=== PATIENT | male | born 1975 | race Caucasian/White ===

== ENCOUNTER 2018-03-24 14:42 | Emergency (ER) | payer SELFPAY ==
[2018-03-24] MEDS ORDERED: 0.9 % SODIUM CHLORIDE 1,000 ML IV ONE (15:10)
[2018-03-24 15:25] LABS: BASOPHILS % 0.5 (0.0-1.5); EOSINOPHILS % 1.5 % (0.0-6.8); MONOCYTES % 6.8 % (0.0-11.0); NEUTROPHILS # 5.3 # k/uL (1.4-7.7)
[2018-03-24 15:45] LABS: eGFR (Non-African) > 60
[2018-03-24] MEDS ORDERED: POTASSIUM CHLORIDE 20 MEQ TABLET.ER PO ONE (16:22)
--- NOTE | 2018-03-24 16:31 | ED Physician Documentation ---
General Adult - HISTORIAN Historian: patient - HPI Stated Complaint: stitch removal, catheter removal, generalized pain, foot swelling Chief Complaint: General Adult Onset: days ago Timing: still present Severity: moderate Further Comments: yes (Pt is a 42 yo male who has had stitches placed in this R elbow and R middle finger that have been in place since March 01. He says that he suffers from gout and incisions were to remove gouty deposits. Pt was unable to f/u to have the sutures removed as instructed. In addition, he had had urinary retention and had a schroeder cath and leg bag placed that was supposed to be removed 2 weeks ago. Pt c/o generalized malaise, but does not have fever. Pt does not have a regular primary provider.) - ROS CONST: other (malais) EYES/ENT: none CVS/RESP: none GI/: other (schroeder cath in place for several weeks) MS/SKIN/LYMPH: other (sutures in place, overdue for removal on R elbow and R middle finger.) - PAST HX Past History: hypertension, other (Depression, Gout) Allergies/Adverse Reactions: Allergies Allergy/AdvReac Type Severity Reaction Status Date / Time gabapentin Allergy Verified 03/24/18 15:31 labetalol Allergy Verified 03/24/18 15:31 ziprasidone [From Geodon] Allergy Verified 03/24/18 15:31 nitro Allergy Uncoded 03/24/18 15:31 Home Medications: Ambulatory Orders Medication Instructions Recorded Cephalexin [Keflex] 500 mg PO Q8H #21 capsule 03/24/18 Clonidine HCl [Catapres] 0.3 mg PO TID 03/24/18 Metoprolol Succinate 100 mg PO DAILY 03/24/18 Spironolactone 25 mg PO DAILY 03/24/18 Trazodone HCl [Desyrel] 100 mg PO DAILY 03/24/18 amLODIPine BESYLATE [Norvasc] 10 mg PO 0900 03/24/18 - SOCIAL HX Smoking History: non-smoker Drug Use: marijuana - FAMILY HX Family History: No - VITAL SIGNS Vital Signs: Vital Signs Temp Pulse Resp BP Pulse Ox 99 H 18 180/122 99 03/24/18 14:45 03/24/18 14:45 03/24/18 14:45 03/24/18 14:45 - REVIEWED ASSESSMENTS Nursing Assessment Reviewed: Yes Vitals Reviewed: Yes Progress - Progress Progress: Sutures removed from R middle finger and R elbow. Schroeder cath removed. Pt was able to void after schroeder removal. Rx Keflex 500 mg. Take one every 8 hours for 7 days for skin and for possible urinary infection. Pt given handout to establish with local primary provider. ED Results Lab/Radiology - Lab Results Lab Results: Lab Results 03/24/18 03/24/18 Unknown Unknown WBC 7.30 K/ul K/ul (4.00-12.00) RBC 5.06 M/ul M/ul (3.90-5.20) Hgb 15.2 g/dL g/dL (12.0-18.0) Hct 45.0 % % (37.0-53.0) MCV 89.0 fl fl (80.0-100.0) MCH 30.0 pg pg (28.0-34.0) MCHC 33.7 g/dL g/dL (30.0-36.0) RDW 13.6 % % (11.3-14.3) Plt Count 161 K/mm3 K/mm3 (130-400) Neut % (Auto) 73.2 % % (39.0-79.0) Lymph % (Auto) 18.0 % % (16.0-50.0) Waldo % (Auto) 6.8 % % (0.0-11.0) Eos % (Auto) 1.5 % % (0.0-6.8) Baso % (Auto) 0.5 (0.0-1.5) Neut # (Auto) 5.3 # k/uL # k/uL (1.4-7.7) Lymph # (Auto) 1.3 # k/uL # k/uL (0.6-4.0) Waldo # (Auto) 0.5 # k/uL # k/uL (0.0-0.9) Eos # (Auto) 0.1 # k/uL # k/uL (0.0-0.6) Baso # (Auto) 0.0 # k/uL # k/uL (0.0-0.5) Sodium 145 mmol/L mmol/L (136-145) Potassium 3.2 mmol/L L mmol/L (3.5-5.1) Chloride 103 mmol/L mmol/L (98-107) Carbon Dioxide 27 mmol/L mmol/L (22-30) BUN 12 mg/dL mg/dL (9-20) Creatinine 1.09 mg/dL mg/dL (0.66-1.25) Estimated Creat Clear 125 Est GFR ( Amer) > 60 (60 - ) Est GFR (Non-Af Amer) > 60 (60 - ) Glucose 120 mg/dL H mg/dL (74-106) Calcium 9.2 mg/dL mg/dL (8.4-10.2) Total Bilirubin 0.5 mg/dL mg/dL (0.2-1.3) AST 51 U/L H U/L (15-46) ALT 44 U/L U/L (13-69) Alkaline Phosphatase 139 U/L H U/L (38-126) Total Protein 7.7 g/dL g/dL (6.3-8.2) Albumin 4.4 g/dL g/dL (3.5-5.0) - Orders Orders: ED Orders Category Date Time Status Schroeder [Urinary catheterization] 1T Care 03/24/18 15:10 Active CBC/PLATELET/DIFF Routine Lab 03/24/18 Completed CMP Routine Lab 03/24/18 Completed 0.9 % Sodium Chloride [Normal Saline] 1,000 ml Med 03/24/18 15:10 Discontinued IV Q1H Potassium Chloride [Klor-Con M20] Med 03/24/18 16:22 Discontinued 20 meq PO NOW ONE General Adult Physical Exam - PHYSICAL EXAM GENERAL APPEARANCE: mild distress EENT: pharynx normal NECK: normal inspection, supple RESPIRATORY: no resp distress, chest non-tender, breath sounds normal CVS: reg rate & rhythm, heart sounds normal ABDOMEN: soft, no organomegaly, normal bowel sounds BACK: normal inspection, no CVA tenderness SKIN: warm/dry, normal color, other (multiple lesions on extremities and chest (? drug use)) EXTREMITIES: normal range of motion, other (sutures in place R elbow and R middle finger) NEURO: oriented X3, motor nml, sensation nml Discharge Clincal Impression: stitches removal, schroeder removal Prescriptions: Cephalexin [Keflex] 500 mg PO Q8H #21 capsule Referrals: Primary Doctor,No [Primary Care Provider] - Condition: Stable Disposition: 01 HOME, SELF-CARE Decision to Admit: NO Decision Time: 16:32
[2018-03-24 16:39] VITALS: BP 135/81
== END 2018-03-24 16:36 | disposition home or self-care (01) ==
LOC: ED 14:42
DX: Z48.02 Encounter for removal of sutures (principal); Z46.6 Encounter for fitting and adjustment of urinary device
CPT/HCPCS: 36415; 80053; 85025; 99282; 99283; J7030